=== PATIENT | male | born 1985 | race Caucasian/White ===

== ENCOUNTER 2022-10-30 08:52 | Emergency (ER) | payer OTHER, SELFPAY ==
[2022-10-30 09:00] VITALS: BP 151/93; PULSE 79; RESP 16; TEMP 36.3; O2SAT 98
--- NOTE | 2022-10-30 09:10 | ED.URI ---
HPI - URI/Sore Throat General Chief Complaint: Upper Respiratory Infection Stated Complaint: Cough/Congestion Time Seen by Provider: 10/30/22 09:10 Source: patient, RN notes reviewed and old records reviewed Mode of arrival: ambulatory Limitations: no limitations History of Present Illness HPI Narrative: To 37-year-old male who presents to [facility] with complaints of sore throat which started 2 days ago which he described as scratchy which has decreased in intensity, he has had cough with congestion, sinus pressure and drainage also. Patient states he has not had any fevers chills or body aches has felt hot at times. Patient denies any known ill contacts. He has taken some Tylenol only for his symptoms. MD elicited complaint: cough and sore throat Onset (ago): day(s) (2) Severity: mild Able to tolerate fluids by mouth: Yes Treatments prior to arrival: acetaminophen Related Data Allergies Allergy/AdvReac Type Severity Reaction Status Date / Time Sulfa (Sulfonamide Allergy Other Verified 10/30/22 09:07 Antibiotics) Review of Systems Review of Systems: CONSTITUTIONAL: Reports malaise, chills, sweats, no known fever. EYES: Denies visual changes, redness, or discharge. ENT: Reports rhinorrhea, congestion, sinus pain, no otalgia mild sore throat. CARDIOVASCULAR: Denies chest pain, palpitations, or edema. RESPIRATORY: Reports cough.? Denies dyspnea. GASTROINTESTINAL: Denies abdominal pain, nausea, vomiting, diarrhea SKIN: Denies rash or itching. MUSCULOSKELETAL: Denies myalgia. NEUROLOGIC: Denies headache. All systems reviewed & are unremarkable except as noted in HPI and below PMFSH Past Medical History Medical History (Updated 10/30/22 @ 09:30 by Yisel Andrade NP) Seizures None since childhood Surgical History Surgical History (Updated 10/30/22 @ 09:22 by Yisel Andrade NP) H/O eye surgery removal of cysts under eyelids age 6 Social History Social History (Updated 10/30/22 @ 09:22 by Yisel Andrade NP) Smoking status: Never smoker Alcohol intake: current Alcohol use details: social Substance use type: does not use Gender identity (if verbalized by the patient): Male Comments At time of signature, agree with nursing past medical, surgical, social and family history. There is no relevant family history pertinent to the presenting complaint Exam Narrative: GENERAL: Well-appearing, well-nourished, and in no acute distress. HEAD: Normocephalic EYES: PERRLA, conjunctivae clear ENT: Nares clear, turbinates edematous and erythematous, clear discharge. Mucous membranes moist. TM pearly acosta with dull light reflex bilaterally; no tragal tenderness. Oropharynx erythematous without lesions. Tonsils red enlarged and without exudate, no drooling, no hoarseness, no trismus, uvula midline.post nasal drainage NECK: Supple. No lymphadenopathy CHEST: Clear to auscultation, breath sounds equal. No wheezing, rhonchi, rales, or stridor. No respiratory distress, speaks in full sentences.loose cough SAO2 98% on room air HEART: Regular rate and rhythm. No murmur heard. SKIN: Warm, dry, no rash. NEURO: Alert and oriented x3. PSYCH: Normal mood and affect Course Course Emergency Course: Patient is aware of diagnosis, understands and agrees to treatment plan.? Anticipatory guidance given.? Patient agrees to follow-up as directed and is aware of reasons to seek care at the emergency department. Portions of this record may have been created with voice recognition software Level of Care: Express Care Visit Vital Signs Vital signs: Vital Signs Temperature 36.3 C L 10/30/22 09:00 Pulse Rate 79 10/30/22 09:00 Respiratory Rate 16 10/30/22 09:00 Blood Pressure 151/93 H 10/30/22 09:00 Pulse Oximetry 98 10/30/22 09:00 Oxygen Delivery Room Air 10/30/22 09:00 Temperature 36.3 C L 10/30/22 09:00 Pulse Rate 79 10/30/22 09:00 Respiratory Rate 16
== END 2022-10-30 09:47 | disposition home or self-care (01) ==
PROVIDERS: Emergency Provider Registered Nurse; PCP Family Medicine
DX: J02.9 Acute pharyngitis, unspecified (principal)
CPT/HCPCS: 87081; 87880; 99213; G0463